=== PATIENT | female | born 1960 ===

== ENCOUNTER → 2024-02-14 | Outpatient (CLI) | payer OTHER ==
[~2024-02-14] VITALS: Ht 166.4 cm; Wt 63.5 kg
== END | disposition home or self-care (01) ==
LOC: Rad HDHVI 09:05
PROVIDERS: ATTEND Internal Medicine Cardiovascular Disease
DX: Z13.6 Encounter for screening for cardiovascular disorders (principal); I11.0 Hypertensive heart disease with heart failure; I50.43 Acute on chronic combined systolic (congestive) and diastolic (congestive) heart failure; R06.02 Shortness of breath
CPT/HCPCS: 78452; 93017; 93306; 96374; A9500

== ENCOUNTER 2025-02-09 07:54 | Outpatient (CLI) | payer OTHER ==
[~2025-02-09] VITALS: Ht 166.4 cm; Wt 68.0 kg
--- NOTE | 2025-02-15 14:26 | DVHSR ---
APPROVED REPORT Exam: Nuclear Stress Test Indication: Screening for CAD Ht: 5 ft 6 in Wt: 150 lbs BSA: 1.77 m2 HR: 62 bpm BP: 155/82 mmHg BMI: 24.20 Rhythm: NSR Medical History Medical History: HTN, Hypercholesterolemia, CHF, Angina Medications: none Allergies: No known drug allergies Cardiac Risk Factors: Family Hx of CAD Stress Test Details Stress Test: Exercise stress testing was performed using a Nelson protocol. HR Resting HR: 62 bpm Max Heart Rate (APMHR): 154.343119 bpm Max HR Achieved: 137 bpm Target HR (85% APMHR): 130.326037 bpm % of APMHR: 88.96 Recovery HR: 76 bpm HR response to stress: Normal HR response to stress BP Resting BP: 155/82 mmHg Max BP: 197/60 mmHg Recovery BP: 138/67 mmHg BP response to stress: resting hypertension- exaggerated response ECG Resting ECG: Sinus Rhythm Stress ECG: Sinus Tachycardia Arrhythmia: PAC Recovery ECG: Sinus Rhythm Clinical Reason for Termination: target HR achieved Stress Symptoms: none Exercise duration: 7 min 40 sec Exercise capacity: 10.10 METs Stress ECG Conclusion NON ISCHEMIC CLINICAL RESPONSE NON ISCHEMIC ECG RESPONSE NON ISCHEMIC STRESS CARDIOLITE PERFUSION SCAN EF >55% NM EXAM: Myocardial Perfusion REST/STRESS Imaging Protocol: Rest Tc-99m/Stress Tc-99m 1 day Resting Data Rest SPECT myocardial perfusion imaging was performed in supine position 30 minutes following the intravenous injection of 11.0 mCi of Tc-99m Sestamibi. Time of rest injection: 814 Date: 02/09/2025 Time of rest imagin Date: 02/09/2025 Administration Route: IV Administration Site: Left AC Exercise Stress At peak stress, the patient was injected intravenously with 32.7 mCi of Tc-99m Sestamibi. Time of stress injection: 914 Date: 02/09/2025 Time of stress imagin Date: 02/09/2025 Administration Route: IV Administration Site: Left AC Heart Rate at time of stress injection: 136 bpm. Patient continued to exercise for 1 minute(s). Gated Stress SPECT was performed 15 minutes after stress injection. The images were gated to evaluate regional wall motion and calculate left ventricular ejection fraction. Comments Cardiolite injection at 6 minutes, 41 seconds into test. Nuclear Conclusion NON ISCHEMIC CLINICAL RESPONSE NON ISCHEMIC ECG RESPONSE NON ISCHEMIC STRESS CARDIOLITE PERFUSION SCAN EF >55%
== END 2025-02-09 17:00 | disposition home or self-care (01) ==
LOC: Rad HDHVI 07:54
PROVIDERS: ATTEND Internal Medicine Cardiovascular Disease
DX: I49.1 Atrial premature depolarization (principal); R00.0 Tachycardia, unspecified; I11.0 Hypertensive heart disease with heart failure; I50.33 Acute on chronic diastolic (congestive) heart failure; I20.0 Unstable angina; E78.00 Pure hypercholesterolemia, unspecified; Z82.49 Family history of ischemic heart disease and other diseases of the circulatory system; Z86.79 Personal history of other diseases of the circulatory system
CPT/HCPCS: 78452; 93017; 93306; A9500; 96374